=== PATIENT | female | born 2000 | race Asian ===

== ENCOUNTER 2022-05-09 15:15 | Outpatient (RCR) | payer OTHER, SELFPAY | END 2022-10-26 23:59 | disposition home or self-care (01) | PROVIDERS: PCP Family Medicine; Visit Provider Family Medicine | DX: H81.90 Unspecified disorder of vestibular function, unspecified ear (principal); Z51.89 Encounter for other specified aftercare | CPT/HCPCS: 97110; 97140; 97162 ==